=== PATIENT | female | born 1960 | race Caucasian/White ===

== ENCOUNTER 2019-12-21 13:04 | Emergency (ER) | payer OTHER, MEDICAID ==
[~2019-12-21] VITALS: Ht 167.6 cm; Wt 136.1 kg
[2019-12-21] MEDS ORDERED: DIAZEPAM 10 MG10 M1 PO (13:56)
[2019-12-21] MEDS ORDERED: NORCO 10-325 T1 EACH PO (13:57)
[2019-12-21] MEDS ORDERED: SOMA350 MG PO (13:57)
[2019-12-21] MEDS ORDERED: ZOCOR 20 MG TAB20 M1 PO (13:58)
[2019-12-21] MEDS ORDERED: WELLBUTRIN XL300 MG PO (13:58)
[2019-12-21] MEDS ORDERED: MITIGARE0.6 MG PO (13:59)
[2019-12-21] MEDS ORDERED: TRAZODONE 150150 M1 PO (13:59)
[2019-12-21] MEDS ORDERED: SENNA PLUS TAB1 EACH PO (14:07)
[2019-12-21] MEDS ORDERED: LEVEMIR FL100 UNIT/2 INJECTION (14:07)
[2019-12-21] MEDS ORDERED: CYMBALTA60 MG PO (14:08)
[2019-12-21] MEDS ORDERED: VENTOLIN HFA 1818 GM INH (14:08)
[2019-12-21] MEDS ORDERED: LISINOPRIL2.5 MG PO (14:09)
[2019-12-21] MEDS ORDERED: VITAMIN B12-FO1 EAC1 PO (14:10)
[2019-12-21] MEDS ORDERED: PANTOPRAZOLE SO40 MG PO (14:10)
[2019-12-21] MEDS ORDERED: SUPER THERAVIT1 EACH PO (14:11)
[2019-12-21] MEDS ORDERED: HYDROCHLOROTHIA25 M2 PO (14:11)
[2019-12-21] MEDS ORDERED: TRAMADOL 50 MG50 MG PO (14:12)
[2019-12-21] MEDS ORDERED: ADIPEX-P37.5 MG PO (14:12)
[2019-12-21] MEDS ORDERED: NEURONTIN 300M300 M2 PO (14:12)
[2019-12-21] MEDS ORDERED: D3-200050 MCG PO (14:13)
[2019-12-21] MEDS ORDERED: JANUMET XR 1001 EACH PO (14:13)
[2019-12-21] MEDS ORDERED: WIXELA 250-501 EACH INH (14:14)
[2019-12-21 15:48] VITALS: BP 109/88
== END 2019-12-21 15:48 | disposition home or self-care (01) ==
LOC: M.ERS 13:04
DX: S00.83XA Contusion of other part of head, initial encounter (principal); M25.562 Pain in left knee; M25.541 Pain in joints of right hand; M25.552 Pain in left hip; E11.9 Type 2 diabetes mellitus without complications; I10 Essential (primary) hypertension; Z90.710 Acquired absence of both cervix and uterus; Z96.653 Presence of artificial knee joint, bilateral; Z79.899 Other long term (current) drug therapy; W18.09XA Striking against other object with subsequent fall, initial encounter; Y93.89 Activity, other specified; Y92.481 Parking lot as the place of occurrence of the external cause; Y99.8 Other external cause status